=== PATIENT | female | born 1970 | race Caucasian/White ===

== ENCOUNTER 2021-03-29 06:06 | Day surgery (SDC) | payer OTHER ==
[2021-03-29] MEDS ORDERED: Lactated Ringers 1,000 ML IV SCH (06:30)
[2021-03-29] MEDS ORDERED: Versed 2 MG/2 ML Injection ONE (07:29)
[2021-03-29] MEDS ORDERED: DIPRIVAN 200 MG/20 ML IV ONE ×2 (07:29→07:37)
--- NOTE | 2021-03-29 08:04 | OP ---
SURGERY DATE/TIME: 03/29/2021 0728 PREOPERATIVE DIAGNOSIS: Screening colon exam. POSTOPERATIVE DIAGNOSIS: Normal colon. PROCEDURE: Colonoscopy. SURGEON: Dr. Mckinney. ANESTHESIA: MAC. Medications given by anesthesia department. HISTORY: The patient is a 50 year-old white female who presents now for her first screening colonoscopy. The patient was appraised of the risks of the procedure including the risk of perforation, phlebitis, untoward reaction to medication, bleeding and missed lesions. The patient verbalized her understanding and desired to have the procedure performed. DESCRIPTION OF PROCEDURE: The patient was given the medications by the anesthesia department. She had continuous pulse oximetry, ECG monitoring, intermittent blood pressure monitoring and tidal CO2 monitoring during the examination. She was placed in the left lateral decubitus position. A digital rectal examination was performed and revealed normal anal sphincter tone and no masses. The flexible Olympus pediatric colonoscope was used to intubate the rectum. A view of the colon was developed sequentially to the cecum. Upon insertion and withdrawal, including a retroflex view in the rectum, no mucosal lesions were encountered. The scope was removed from the patient who tolerated the procedure well and was sent back to OP recovery in good condition. The prep was noted to be good.
[2021-03-29] MEDS ORDERED: Lactated Ringers 1,000 ML IV ONE (08:08)
[2021-03-29 08:35] VITALS: O2SAT 100
[2021-03-29 08:46] VITALS: PULSE 68
[2021-03-29 09:11] VITALS: BP 89/55
== END 2021-03-29 09:05 | disposition home or self-care (01) ==
LOC: SDC 06:06
PROVIDERS: ATTEND Family Medicine
DX: Z12.11 Encounter for screening for malignant neoplasm of colon (principal); Z79.899 Other long term (current) drug therapy
CPT/HCPCS: J2250; J2704

== ENCOUNTER 2021-05-20 14:35 | Emergency (ER) | payer OTHER ==
[2021-05-20] MEDS ORDERED: Ear Wax Drops OT STA (15:11)
[2021-05-20] MEDS ORDERED: Ear Wax Drops OT ONE (15:14)
--- NOTE | 2021-05-20 16:10 | ERPHSYRPT ---
- History of Present Illness Patient Subjective Stated Complaint: PT HERE FOR EARACHE TO LEFT EAR, SHE WAS PLACED ON ANTIBOITCS FOR URI ON THURSDAY, Triage Nursing Assessment: PT ALERT, WALKED IN, RESP EASY, FACE MASK IN PLACE, HAS SWELLING TO EXTERNAL LEFT EAR Physician History: Patient is a 50-year-old female presents to emergency department with complaints of an earache to her left ear. Patient was started on Augmentin on Thursday, 3 days ago. Patient states her symptoms have not improved. Pain described as an ache that is localized. Pain tends to radiate to the back of her ear. Patient also has a lymph node in this area. No trauma. No fever. No nausea or vomiting. No dizziness. Symptoms are constant. Symptoms are moderate in intensity. No specific worsening improving factors. Patient states that she feels her ear is red and swollen. Patient voices no other complaints or concerns at this time. Timing/Duration: days (3 days ago) Severity: moderate ENT Location: ear (L) Prearrival Treatment: prescription meds Modifying Factors: Improves With: nothing Associated Symptoms: ear pain (L), No fever, No dizziness, No facial pain/swelling, No headache, No hearing loss, No jaw pain, No malaise, No motion sickness, No nasal congestion/drainage, No epistaxis, No poor fluid intake, No ringing of ears, No swollen glands, No sore throat, No tooth pain, No difficulty swallowing, No voice change Allergies/Adverse Reactions: Sulfa (Sulfonamide Antibiotics) Adverse Reaction (Verified 05/20/21 14:49) Hives Home Medications: Ascorbic Acid/Collagen Hydr [Collagen Plus Vit C Capsule] 1 each PO DAILY 03/20/21 [History] Cholecalciferol (Vitamin D3) [Vitamin D] 400 unit PO DAILY 03/20/21 [History] Black Cohosh 40 mg PO DAILY 03/29/21 [History] Amoxicillin/Potassium Clav [Augmentin 875-125 Tablet] 1 ea DAILY 05/20/21 [History] Levothyroxine Sodium 100 Mcg [Synthroid 100 Mcg] 1 ea DAILY 05/20/21 [History] Hx Influenza Vaccination/Date Given: No Hx Pneumococcal Vaccination/Date Given: No Immunizations Up to Date: Yes Travel Risk - International Travel Have you traveled outside of the country in past 3 weeks: No - Coronavirus Screening Are you exhibiting any of the following symptoms?: No - Vaccine Status Have you recieved a Covid-19 vaccination: Yes 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: [employer] - Vaccination Dates Dates if Unknown: FEBRUARY - Review of Systems Constitutional: No Symptoms, No Fever, No Chills Eyes: No Symptoms Ears, Nose, & Throat: No Symptoms Respiratory: No Symptoms, No Cough, No Dyspnea Cardiac: No Symptoms, No Chest Pain, No Edema, No Syncope Abdominal/Gastrointestinal: No Symptoms, No Abdominal Pain, No Nausea, No Vomiting, No Diarrhea Genitourinary Symptoms: No Symptoms, No Dysuria Musculoskeletal: No Symptoms, No Back Pain, No Neck Pain Skin: No Symptoms, No Rash Neurological: No Symptoms, No Dizziness, No Focal Weakness, No Sensory Changes Psychological: No Symptoms Endocrine: No Symptoms Hematologic/Lymphatic: No Symptoms Immunological/Allergic: No Symptoms All Other Systems: Reviewed and Negative - Past Medical History Pertinent Past Medical History: Yes Neurological History: No Pertinent History ENT History: No Pertinent History Cardiac History: No Pertinent History Respiratory History: No Pertinent History Endocrine Medical History: Hypothyroidism Musculoskeletal History: No Pertinent History GI Medical History: No Pertinent History History: Other Psycho-Social History: No Pertinent History Female Reproductive Disorders: No Pertinent History Other Medical History: frequent UTIs - Past Surgical History Past Surgical History: No Neuro Surgical History: No Pertinent History Cardiac: No Pertinent History Respiratory: No Pertinent History Gastrointestinal: No Pertinent History Genitourinary: No Pertinent History Musculoskeletal: No Pertinent History Female Surgical History: No Pertinent History Other Surgical History: oral surgery - Social History Smoking Status: Never smoker Exposure to second hand smoke: No Drug Use: none Patient Lives Alone: No - Female History Hx Last Menstrual Period: POST Hx Now: No - Nursing Vital Signs Nursing Vital Signs: Initial Vital Signs Temperature 98.0 F 05/20/21 14:44 Pulse Rate 69 05/20/21 14:44 Respiratory Rate 18 05/20/21 14:44 Blood Pressure 132/88 05/20/21 14:44 O2 Sat by Pulse Oximetry 98 05/20/21 14:44 Pain Scale Pain Intensity 3 - Physical Exam General Appearance: no apparent distress, alert, other (The lymph node at the base of the skull on the left side. This entire area into the left mastoid is tender.) Eye Exam: bilateral eye: normal inspection, PERRL, EOMI Ear Exam: right ear: auricle normal, left ear: other (Auricle is red and somewhat tender. It is unclear whether it is red because patient keeps pulling on it versus red from infection. Patient currently on Augmentin antibiotic.), bilateral ear: canal normal, TM normal Nasal Exam: normal inspection Throat Exam: pharynx normal, moist mucus membranes, No tonsillar exudate Neck Exam: supple Cardiovascular/Respiratory Exam: normal breath sounds, regular rate/rhythm Abdominal Exam: non-tender, soft Neurologic Exam: alert, oriented x 3, sensation nml, No motor deficits Skin Exam: normal color, warm, dry SpO2 Interpretation: normal SpO2: 98 O2 Delivery: Room Air - Course Nursing assessment & vital signs reviewed: Yes - CT Exams Other CT Interpretation: Tele-radiologist Report (CT mastoids show mastoids are well aerated without evidence of abnormal opacification, no effusion or bone destruction. The internal auditory canals and semicircular canals appear unremarkable.) Ordered Tests: Active Orders 24 hr Category Date Time Status IAC W/O CONTRAST [CT] Stat Exams 05/20/21 15:36 Completed Medication Summary Discontinued Medications Generic Name Dose Route Start Last Admin Trade Name Alida PRN Reason Stop Dose Admin Carbamide Perox/Anhydrous Glycerin 1 ml 05/20/21 15:11 05/20/21 15:18 Ear Wax Drops OT 05/20/21 15:12 1 ml ONCE STA Administration Carbamide Perox/Anhydrous Glycerin Confirm 05/20/21 15:14 Ear Wax Drops Administered 05/20/21 15:15 Dose 15 ml OT .STK-MED ONE - Progress Progress: improved Progress Note: Patient reassessed for she feels well. Patient will continue taking her Augmentin antibiotic. CT scan negative for mastoiditis. We will refer patient to ENT for follow-up. Tentative diagnosis is perichondritis. 05/20/21 16:55 - Departure Departure Disposition: Home Clinical Impression: Maxillary sinusitis, Perichondritis Condition: Stable Critical Care Time: No Referrals: DOCTOR,NO FAMILY [Primary Care Provider] - Additional Instructions: Discharge/Care Plan RAMONA STEEL was seen on 05/20/21 in the Emergency Room. The patient was counseled regarding Diagnosis,Lab results, Imaging studies, need for follow up and when to return to the Emergency Room. Prescriptions given: Discharge Note I have spoken with the patient and/or caregivers. I have explained the patient's condition, diagnosis and treatment plan based on the information available to me at this time. I have answered the patient's and/or caregiver's questions and addressed any concerns. The patient and/or caregivers have as good understanding of the patient's diagnosis, condition and treatment plan as can be expected at this point. The vital signs have been stable. The patient's condition is stable and appropriate for discharge from the emergency department. The patient will pursue further outpatient evaluation with the primary care physician or other designated or consulting physician as outlined in the discharge instructions. The patient and/or caregivers are agreeable to this plan of care and follow-up instructions have been explained in detail. The patient and/or caregivers have received these instruction. The patient/and or caregivers are aware that any significant change in condition or worsening of symptoms should prompt an immediate return to this or the closest emergency department or call 911.
--- NOTE | 2021-05-20 16:46 | XRAY ---
Exam: CT of the internal auditory canals without IV contrast from 05/20/2021. CTDI: 26.05 mGy Comparison: None. Indication: 50-year-old female with left ear pain; left posterior head tenderness since last Thursday. Technique: Non-IV contrast axial images were obtained through the temporal bones including the mastoids. Reconstructed coronal and sagittal images were generated and reviewed. Findings: The mastoid air cells are clear without effusion, erosions, or bone destruction. The internal artery canals and semicircular canals of the inner ears appear symmetric. The middle ear ossicles and middle ear cavities appear symmetric bilaterally. The external auditory canals appear grossly unremarkable, although there may be slightly more soft tissue prominence about the margins of the left ear and proximal external auditory canal as compared to the right ear. Correlate with clinical exam. There is moderate mucosal thickening/soft tissue density within the left frontal sinus. Minimal scattered soft tissue density is seen within the ethmoid sinus complex bilaterally. The sphenoid sinus appears essentially unremarkable. There is moderate circumferential mucosal thickening about the left maxillary sinus. No air-fluid level is seen. Right maxillary sinus appears intact. The orbits appear grossly unremarkable. No other bone abnormality is seen. Impression: 1. The mastoids are well aerated without evidence of abnormal opacification, effusion, or bone destruction. 2. The internal artery canals and semicircular canals appear unremarkable and are symmetric bilaterally. 3. No other significant abnormality is seen within either middle ear cavity. 4. Although the external auditory canals appear patent, there is slightly more peripheral soft tissue prominence about the left ear and proximal left external artery canal as compared to the right side. Correlate with clinical exam. 5. Mild to moderate chronic paranasal sinus disease/sinusitis is seen, as discussed above. No air-fluid levels or dense central sinus opacification is seen.
[2021-05-20 17:20] VITALS: PULSE 70
[2021-05-20 17:47] VITALS: BP 100/75; O2SAT 99
== END 2021-05-20 17:46 | disposition home or self-care (01) ==
LOC: ED 14:35
DX: H61.002 Unspecified perichondritis of left external ear (principal); H92.02 Otalgia, left ear; J32.0 Chronic maxillary sinusitis; Z79.899 Other long term (current) drug therapy
CPT/HCPCS: 70480; 99284; A9270-GY

== ENCOUNTER 2021-10-19 11:05 | Emergency (ER) | payer OTHER ==
[2021-10-19] MEDS ORDERED: BABY ASPIRIN 81 MG CHEW PO ONE (11:15)
[2021-10-19] MEDS ORDERED: GI COCKTAIL 45 ML (Maalox/Lidocaine) PO ONE (11:16)
--- NOTE | 2021-10-19 11:20 | ERPHSYRPT ---
- History of Present Illness Time Seen by Provider: 10/19/21 11:15 Historian: patient Exam Limitations: no limitations Patient Subjective Stated Complaint: Pt c/o of pressure in her medial chest Triage Nursing Assessment: Pt brought to the ER by her daughter, vitals wnl, rates pain as 1/10, no edema, pulses normal, denies N&V, skin n/w/d, doesn't appear to be in any distress Physician History: 51 years old female with history of hypothyroidism presented in ER with chief complaint of central chest pain with a pressure tightness sensation constant for the last 2 to 3 days without any significant aggravating or relieving factors. Patient denies associated palpitations or shortness of breath. No radiation. No fever chills or cough but did have some cough more than a week ago. Vaccinated against COVID-19. No history of CAD, PE, leg swelling/pain etc. Timing/Duration: day(s) (2), constant, gradual onset, improved Activities at Onset: rest Quality: fullness, tightness Location: central Chest Pain Radiation: no radiation Severity of Pain-Max: moderate Severity of Pain-Current: mild Modifying Factors: Improves With: nothing Associated Symptoms: denies symptoms Prior Chest Pain/Cardiac Workup: no prior chest pain, no prior cardiac workup Nitro Today/Relief: no nitro taken today Aspirin Treatment Today: no aspirin today Allergies/Adverse Reactions: Sulfa (Sulfonamide Antibiotics) Adverse Reaction (Verified 10/19/21 11:16) Hives Home Medications: Ascorbic Acid/Collagen Hydr [Collagen Plus Vit C Capsule] 1 each PO DAILY 03/20/21 [History] Cholecalciferol (Vitamin D3) [Vitamin D] 400 unit PO DAILY 03/20/21 [History] Black Cohosh 40 mg PO DAILY 03/29/21 [History] Levothyroxine Sodium 100 Mcg [Synthroid 100 Mcg] 1 ea PO DAILY 05/20/21 [History] Hx Influenza Vaccination/Date Given: No Hx Pneumococcal Vaccination/Date Given: No Travel Risk - International Travel Have you traveled outside of the country in past 3 weeks: No - Coronavirus Screening Are you exhibiting any of the following symptoms?: No Close contact with a COVID-19 positive Pt in past 14-21 Days: No - Vaccine Status Have you recieved a Covid-19 vaccination: Yes 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[employer] - Vaccination Dates Dates if Unknown: FEBRUARY - Review of Systems Constitutional: No Symptoms Eyes: No Symptoms Ears, Nose, & Throat: No Symptoms Respiratory: No Symptoms Cardiac: Chest Pain Abdominal/Gastrointestinal: No Symptoms Genitourinary Symptoms: No Symptoms Musculoskeletal: No Symptoms Skin: No Symptoms Neurological: No Symptoms Psychological: No Symptoms Endocrine: No Symptoms Hematologic/Lymphatic: No Symptoms Immunological/Allergic: No Symptoms - Past Medical History Pertinent Past Medical History: Yes Neurological History: No Pertinent History ENT History: No Pertinent History Cardiac History: No Pertinent History Respiratory History: No Pertinent History Endocrine Medical History: Hypothyroidism Musculoskeletal History: No Pertinent History GI Medical History: No Pertinent History History: Other Psycho-Social History: No Pertinent History Female Reproductive Disorders: No Pertinent History Other Medical History: frequent UTIs - Past Surgical History Past Surgical History: No Neuro Surgical History: No Pertinent History Cardiac: No Pertinent History Respiratory: No Pertinent History Gastrointestinal: No Pertinent History Genitourinary: No Pertinent History Musculoskeletal: No Pertinent History Female Surgical History: No Pertinent History Other Surgical History: oral surgery - Social History Smoking Status: Never smoker Exposure to second hand smoke: No Drug Use: none Patient Lives Alone: No - Female History Hx Now: No - Nursing Vital Signs Nursing Vital Signs: Initial Vital Signs Temperature 96.2 F 10/19/21 11:06 Pulse Rate 59 L 10/19/21 11:06 Respiratory Rate 19 10/19/21 11:06 Blood Pressure 109/57 10/19/21 11:06 O2 Sat by Pulse Oximetry 99 10/19/21 11:06 Pain Scale Pain Intensity 1 - Physical Exam General Appearance: no apparent distress, alert, anxiety Eye Exam: PERRL/EOMI, eyes nml inspection Ears, Nose, Throat Exam: normal ENT inspection, pharynx normal Neck Exam: normal inspection, non-tender, supple, full range of motion Respiratory Exam: normal breath sounds, lungs clear Cardiovascular Exam: regular rate/rhythm, normal heart sounds Gastrointestinal/Abdomen Exam: soft Back Exam: normal inspection, normal range of motion Extremity Exam: normal inspection, normal range of motion Neurologic Exam: alert, oriented x 3, 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, 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 Skin Exam: normal color SpO2 Interpretation: normal SpO2: 99 O2 Delivery: Room Air - Course EKG Interpreted by Me: RATE (59), Sinus Adan, NORMAL AXIS, NORMAL INTERVALS, NORMAL QRS Ordered Tests: Medication Summary Discontinued Medications Generic Name Dose Route Start Last Admin Trade Name Alida PRN Reason Stop Dose Admin Al Hydrox/Mg Hydrox/Simethicone Confirm 10/19/21 11:36 Mag Hydrox/Al Hydrox/Simeth 30 Ml Udcup Administered 10/19/21 11:37 Dose 30 ml .ROUTE .STK-MED ONE Aspirin 324 mg 10/19/21 11:15 10/19/21 11:37 Aspirin 81 Mg Tab.Chew PO 10/19/21 11:16 324 mg STAT ONE Administration Aspirin Confirm 10/19/21 11:35 Aspirin 81 Mg Tab.Chew Administered 10/19/21 11:36 Dose 324 mg .ROUTE .STK-MED ONE Lidocaine HCl Confirm 10/19/21 11:36 Lidocaine Hcl Viscous 1 Ml Administered 10/19/21 11:37 Dose 15 ml .ROUTE .STK-MED ONE Magnesium Hydroxide 45 ml 10/19/21 11:16 10/19/21 11:37 Mag Hydrx/Alum Hyd/Simeth/Lido 45 Ml Bottle PO 10/19/21 11:17 45 ml STAT ONE Administration Lab/Rad Data: Laboratory Result Diagrams 10/19/21 11:15 10/19/21 11:15 Laboratory Results 10/19/21 10/19/21 10/19/21 Range/Units 14:19 11:30 11:15 WBC (4.0-10.5) K/mm3 RBC (4.1-5.4) M/mm3 Hgb (12.0-16.0) gm/dl Hct (35-47) % MCV (78-100) fl MCH (26-32) pg MCHC (32-36) g/dl RDW (11.5-14.0) % Plt Count (150-450) K/mm3 MPV (7.5-11.0) fl Gran % (36.0-66.0) % Eos # (Auto) (0-0.5) Absolute Lymphs (auto) (1.0-4.6) Absolute Monos (auto) (0.0-1.3) Lymphocytes % (24.0-44.0) % Monocytes % (0.0-12.0) % Eosinophils % (0.00-5.0) % Basophils % (0.0-0.4) % Absolute Granulocytes (1.4-6.9) Basophils # (0-0.4) D-Dimer 360 (215-500) ng/mL Sodium (137-145) mmol/L Potassium (3.5-5.1) mmol/L Chloride (98-107) mmol/L Carbon Dioxide (22-30) mmol/L Anion Gap (5-15) MEQ/L BUN (7-17) mg/dL Creatinine (0.52-1.04) mg/dL Estimated GFR ML/MIN Glucose (74-106) mg/dL Calcium (8.4-10.2) mg/dL Total Bilirubin (0.2-1.3) mg/dL AST (14-36) U/L ALT (0-35) U/L Alkaline Phosphatase (38-126) U/L Creatine Kinase (30-135) U/L Troponin I < 0.012 < 0.012 (0.000-0.034) ng/mL NT-Pro-B Natriuret Pep (0-900) pg/mL Serum Total Protein (6.3-8.2) g/dL Albumin (3.5-5.0) g/dL 10/19/21 10/19/21 Range/Units 11:15 11:15 WBC 5.6 (4.0-10.5) K/mm3 RBC 4.35 (4.1-5.4) M/mm3 Hgb 12.9 (12.0-16.0) gm/dl Hct 40.5 (35-47) % MCV 93.1 (78-100) fl MCH 29.7 (26-32) pg MCHC 31.9 L (32-36) g/dl RDW 13.6 (11.5-14.0) % Plt Count 329 (150-450) K/mm3 MPV 9.3 (7.5-11.0) fl Gran % 60.4 (36.0-66.0) % Eos # (Auto) 0.13 (0-0.5) Absolute Lymphs (auto) 1.50 (1.0-4.6) Absolute Monos (auto) 0.54 (0.0-1.3) Lymphocytes % 26.9 (24.0-44.0) % Monocytes % 9.7 (0.0-12.0) % Eosinophils % 2.3 (0.00-5.0) % Basophils % 0.7 (0.0-0.4) % Absolute Granulocytes 3.36 (1.4-6.9) Basophils # 0.04 (0-0.4) D-Dimer (215-500) ng/mL Sodium 141 (137-145) mmol/L Potassium 4.1 (3.5-5.1) mmol/L Chloride 106 (98-107) mmol/L Carbon Dioxide 28 (22-30) mmol/L Anion Gap 11.2 (5-15) MEQ/L BUN 14 (7-17) mg/dL Creatinine 0.80 (0.52-1.04) mg/dL Estimated GFR > 60.0 ML/MIN Glucose 90 (74-106) mg/dL Calcium 9.8 (8.4-10.2) mg/dL Total Bilirubin 0.60 (0.2-1.3) mg/dL AST 34 (14-36) U/L ALT 44 H (0-35) U/L Alkaline Phosphatase 113 (38-126) U/L Creatine Kinase 58 (30-135) U/L Troponin I (0.000-0.034) ng/mL NT-Pro-B Natriuret Pep 94.6 (0-900) pg/mL Serum Total Protein 6.9 (6.3-8.2) g/dL Albumin 4.1 (3.5-5.0) g/dL - Progress Progress: improved Air Movement: good Progress Note: 10/19/21 14:56 51 years old is evaluated for chest pain last 2 days. EKG did not show any acute ischemic changes, negative troponins x2. Low heart score. Does not seem cardiac and have some element of GERD with esophagitis which improved with GI cocktail recommended outpatient follow-up. Discussed signs symptoms of worsening return to ER which she seems understanding. Blood Culture(s) Obtained: No Antibiotics given: No Counseled pt/family regarding: lab results, diagnosis, need for follow-up, rad results - Departure Departure Disposition: Home Clinical Impression: Atypical chest pain GERD with esophagitis Qualifiers: Esophagitis bleeding: without hemorrhage Qualified Code(s): K21.00 - Gastro- esophageal reflux disease with esophagitis, without bleeding Condition: Stable Critical Care Time: No Referrals: DOCTOR,NO FAMILY [NON-STAFF PHY W/O PRIVILEGES] - Follow up/PCP as directed VIANEY DAVALOS MD [ACTIVE STAFF] - Follow up/PCP as directed (In 2 days for reevaluation) MUKUL CALIX [CONSULTING PHYSICIAN] - Follow up/PCP as directed (Call Thursday morning for evaluation) Instructions: Acid Reflux and GERD in Adults (DC), Angina (DC) Additional Instructions: Avoid spicy food. Take Tylenol as needed. Follow-up with primary care and cardiology for reevaluation. Return to ER for worsening chest pain or if having palpitations/shortness of breath etc. Prescriptions: PANTOPRAZOLE 40 mg Tablet [Protonix 40MG Tablet] 40 mg PO QAM #30 tab
[2021-10-19 11:30] LABS: Absolute Neutrophil Ct (ANC) 3.36 (1.4-6.9); BASOPHIL % 0.7 % (0.0-0.4); Basophil (Absolute #) 0.04 (0-0.4); Eosinophil % 2.3 % (0.00-5.0); Eosinophil (Absolute #) 0.13 (0-0.5); Hematocrit 40.5 % (35-47); Hemoglobin 12.9 gm/dl (12.0-16.0); Lymphocytes % 26.9 % (24.0-44.0); Mean Cell Volume 93.1 fl (78-100); Mean Corpuscular Hemoglobin 29.7 pg (26-32); Mean Corpuscular Hgb Concent. 31.9 g/dl (32-36); Mean Platelet Volume 9.3 fl (7.5-11.0); Monocyte (Absolute #) 0.54 (0.0-1.3); Monocytes % 9.7 % (0.0-12.0); Neutrophil % 60.4 % (36.0-66.0); Platelet Count 329 K/mm3 (150-450); Red Blood Count 4.35 M/mm3 (4.1-5.4); Red Cell Distribution Width 13.6 % (11.5-14.0); White Blood Count 5.6 K/mm3 (4.0-10.5)
[2021-10-19] MEDS ORDERED: BABY ASPIRIN 81 MG CHEW ONE (11:35)
[2021-10-19] MEDS ORDERED: MAALOX ES 30 ML UNIT DOSE ONE (11:36)
[2021-10-19] MEDS ORDERED: XYLOCAINE HCl Viscous ONE (11:36)
[2021-10-19 12:08] LABS: ALBUMIN 4.1 g/dL (3.5-5.0); ALKALINE PHOSPHATASE 113 U/L (38-126); ANION GAP 11.2 MEQ/L (5-15); BLOOD UREA NITROGEN 14 mg/dL (7-17); CHLORIDE 106 mmol/L (98-107); CK-Creatinine Phosphokinase 58 U/L (30-135); Calcium 9.8 mg/dL (8.4-10.2); Carbon Dioxide 28 mmol/L (22-30); EST GLOMERULAR FILTRATION RATE > 60.0 ML/MIN; Glucose 90 mg/dL (74-106); NT PRO BNP 94.6 pg/mL (0-900); Potassium 4.1 mmol/L (3.5-5.1); SGOT/AST 34 U/L (14-36); SGPT/ALT 44 U/L (0-35); SODIUM 141 mmol/L (137-145); Total Protein 6.9 g/dL (6.3-8.2)
[2021-10-19 14:09] VITALS: BP 100/65; PULSE 52
[2021-10-19 14:58] VITALS: O2SAT 99
--- NOTE | 2021-10-19 19:41 | XRAY ---
Indication: Chest pain 2-3 days. Comparison: None Portable chest demonstrates normal heart and lungs. Bony thorax intact.
== END 2021-10-19 15:27 | disposition home or self-care (01) ==
LOC: ED 11:05
DX: R07.89 Other chest pain (principal); E03.9 Hypothyroidism, unspecified; K21.00 Gastro-esophageal reflux disease with esophagitis, without bleeding
CPT/HCPCS: 36000; 36415; 71045; 80053; 82550; 83880; 84484; 85025; 85379; 93005; 93041; 99284; A9270-GY

== ENCOUNTER 2022-12-05 13:39 | Emergency (ER) | payer OTHER ==
[2022-12-05 14:02] VITALS: O2SAT 99
[2022-12-05] MEDS ORDERED: Augmentin 875-125 Tablet PO ONE (14:31)
--- NOTE | 2022-12-05 14:34 | ERPHSYRPT ---
- History of Present Illness Time Seen by Provider: 12/05/22 14:20 Source: patient Exam Limitations: no limitations Patient Subjective Stated Complaint: C/O left lower eye pain and swelling. Patient states that she did a type of facial mask on Thursday and thinks maybe she has an infected tear duct or eyelash. Patient denies any changes in vision. Triage Nursing Assessment: Patient ambulated back to ER. She is alert and oriented. No SOB. Left lower eyelid is swollen. No drainage noted. Physician History: Patient is a 52-year-old female presents to emergency department for evaluation of left lower eyelid swelling and erythema. Mild pain. Patient wears contacts however does have corrective eyeglasses if required. No trauma. No fever. Patient symptoms started a few days ago after wearing a mask. Patient unsure if her symptoms are due to an infected eyelash. No headache. No fever. No nausea vomiting. No pain with extraocular motion. Symptoms are mild to moderate in intensity. No specific worsening improving factors. Patient otherwise feels well. She voices no other complaints or concerns at this time. Patient requesting antibiotic therapy Portions of this note were created with voice recognition technology. There may be grammatical, spelling, punctuation or sound alike errors Timing/Duration: day(s) Location: left eye Severity: moderate Apparent Injury: no Associated Symptoms: No sensitivity to light, No redness, No matting, No eyelid swelling, No other (Patient has no symptomology pertaining to her globe. Patient symptoms are localized to the left lower eyelid) Visual Assistive Devices: Glasses, Contacts Chemical Exposure: No Trauma: No Welding Arc/Tanning Bed Exposure: No Allergies/Adverse Reactions: Sulfa (Sulfonamide Antibiotics) Adverse Reaction (Verified 12/05/22 13:48) Hives Home Medications: Ascorbic Acid/Collagen Hydr [Collagen Plus Vit C Capsule] 1 each PO DAILY 03/20/21 [History] Cholecalciferol (Vitamin D3) [Vitamin D] 400 unit PO DAILY 03/20/21 [History] Black Cohosh 40 mg PO DAILY 03/29/21 [History] Levothyroxine Sodium 100 Mcg [Synthroid 100 Mcg] 1 ea PO DAILY 05/20/21 [History] Hx Tetanus, Diphtheria Vaccination/Date Given: Yes Hx Influenza Vaccination/Date Given: Yes Hx Pneumococcal Vaccination/Date Given: Yes Immunizations Up to Date: Yes Travel Risk - International Travel Have you traveled outside of the country in past 3 weeks: No - Coronavirus Screening Are you exhibiting any of the following symptoms?: No Close contact with a COVID-19 positive Pt in past 14-21 Days: No - Vaccine Status Have you recieved a Covid-19 vaccination: Yes 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: [employer] - Vaccination Dates Dates if Unknown: FEBRUARY - Review of Systems Constitutional: No Symptoms, No Fever, No Chills Eyes: No Symptoms Ears, Nose, & Throat: No Symptoms Respiratory: No Symptoms, No Cough, No Dyspnea Cardiac: No Symptoms, No Chest Pain, No Edema, No Syncope Abdominal/Gastrointestinal: No Symptoms, No Abdominal Pain, No Nausea, No Vomiting, No Diarrhea Genitourinary Symptoms: No Symptoms, No Dysuria Musculoskeletal: No Symptoms, No Back Pain, No Neck Pain Skin: No Symptoms, No Rash Neurological: No Symptoms, No Dizziness, No Focal Weakness, No Sensory Changes Psychological: No Symptoms Endocrine: No Symptoms Hematologic/Lymphatic: No Symptoms Immunological/Allergic: No Symptoms All Other Systems: Reviewed and Negative - Past Medical History Pertinent Past Medical History: Yes Neurological History: No Pertinent History ENT History: No Pertinent History Cardiac History: No Pertinent History Respiratory History: No Pertinent History Endocrine Medical History: Hypothyroidism Musculoskeletal History: No Pertinent History GI Medical History: No Pertinent History History: Other Psycho-Social History: No Pertinent History Female Reproductive Disorders: No Pertinent History Other Medical History: frequent UTIs - Past Surgical History Past Surgical History: Yes Neuro Surgical History: No Pertinent History Cardiac: No Pertinent History Respiratory: No Pertinent History Gastrointestinal: No Pertinent History Genitourinary: No Pertinent History Musculoskeletal: No Pertinent History Female Surgical History: No Pertinent History Other Surgical History: oral surgery - Social History Smoking Status: Never smoker Exposure to second hand smoke: No Drug Use: none Patient Lives Alone: No - Nursing Vital Signs Nursing Vital Signs: Initial Vital Signs Pulse Rate 67 12/05/22 13:49 Respiratory Rate 18 12/05/22 13:49 Blood Pressure 100/56 12/05/22 13:49 O2 Sat by Pulse Oximetry 99 12/05/22 13:49 Pain Scale Pain Intensity 3 - Physical Exam General Appearance: no apparent distress Vision Acuity Degree Evaluation Phase: Corrected (Patient states there is no acute change in her vision at either eye. RN did not perform visual acuity screening.) Eye Exam: left eye: eyelid inflammation (Left lower lid inflammation/blepharitis.), foreign body (There appears to be a 1 body the left lower lid. It is unclear what it was however it was removed during irrigation of the involved eye.), bilateral eye: normal inspection, PERRL, EOMI Ears, Nose, Throat Exam: normal ENT inspection, TMs normal, pharynx normal Neck Exam: normal inspection, non-tender, supple, full range of motion Respiratory Exam: normal breath sounds, chest tenderness, lungs clear, No respiratory distress Cardiovascular Exam: regular rate/rhythm, normal heart sounds, normal peripheral pulses Gastrointestinal Exam: soft, normal bowel sounds, No tenderness, No distention, No guarding Extremity Exam: normal inspection, normal range of motion Neurologic: alert, oriented x 3, cooperative, 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 Physical exam reveals a blepharitis. Patient's complaint is acute in nature. Complexity of complaint is mild. No significant comorbidities to attribute to patient's current complaints. No specific test ordered. Diagnosis was based on history and physical. Patient's involved eye was irrigated as there appeared to be a foreign body under the left lower eyelid. After irrigation the foreign body appeared to be a accumulation of mucus. History and physical exam aided in medical decision making. Due to the inflamed nature of the left lower lid patient received a dose of Augmentin in our emergency department. A prescription for the same was forwarded to patient's pharmacy. Patient also received a dose of Tylenol for treatment of minimal left lower leg discomfort. . Plan of care discussed with patient. She will follow-up with her guest relations representative next week. Patient will remove her contacts and wear her glasses until approved otherwise by her guest relations representative. Patient will take her Augmentin antibiotic as prescribed. Patient has the means to follow through with the plan of care. Level of EM service provided was straightforward. Number complexity of problem was mild. No specific data reviewed or analyzed. Risk of complications and/or risk of morbidity/mortality related to patient management is mild. No critical care time to this encounter. Patient's involved eye was irrigated. No complications during or post irrigation. Patient's response to care was positive. Patient feels much better. Time spent during discharge is approximately 10 minutes. Patient will be discharged home. She will follow-up with her guest relations representative. Portions of this note were created with voice recognition technology. There may be grammatical, spelling, punctuation or sound alike errors 12/05/22 14:43 Counseled pt/family regarding: diagnosis, need for follow-up, rad results - Departure Departure Disposition: Home Clinical Impression: Blepharitis Condition: Stable Critical Care Time: No Referrals: KAJAL GONZALEZ MD [Primary Care Provider] - Follow up/PCP as directed Additional Instructions: Discharge/Care Plan RAMONA STEEL was seen on 12/05/22 in the Emergency Room. The patient was counseled regarding Diagnosis,Lab results, Imaging studies, need for follow up and when to return to the Emergency Room. Prescriptions given: Discharge Note I have spoken with the patient and/or caregivers. I have explained the patient's condition, diagnosis and treatment plan based on the information available to me at this time. I have answered the patient's and/or caregiver's questions and addressed any concerns. The patient and/or caregivers have as good understanding of the patient's diagnosis, condition and treatment plan as can be expected at this point. The vital signs have been stable. The patient's condition is stable and appropriate for discharge from the emergency department. The patient will pursue further outpatient evaluation with the primary care physician or other designated or consulting physician as outlined in the discharge instructions. The patient and/or caregivers are agreeable to this plan of care and follow-up instructions have been explained in detail. The patient and/or caregivers have received these instruction. The patient/and or caregivers are aware that any significant change in condition or worsening of symptoms should prompt an immediate return to this or the closest emergency department or call 911. Prescriptions: Amox Tr/Potass Clav. 875 mg [Augmentin 875-125 Tablet] 875 mg PO BID 7 Days #14 tablet
[2022-12-05] MEDS ORDERED: TYLENOL 325 MG PO ONE (14:38)
[2022-12-05] MEDS ORDERED: TYLENOL 325 MG ONE (14:39)
[2022-12-05] MEDS ORDERED: Augmentin 875-125 Tablet ONE (14:39)
[2022-12-05 14:53] VITALS: BP 90/60; PULSE 64
== END 2022-12-05 14:53 | disposition home or self-care (01) ==
LOC: ED 13:39
DX: H01.005 Unspecified blepharitis left lower eyelid (principal); Z79.899 Other long term (current) drug therapy
CPT/HCPCS: 99282; A9270-GY

== ENCOUNTER 2024-03-08 19:26 | Emergency (ER) | payer OTHER ==
[2024-03-08] MEDS ORDERED: XYLOCAINE 1% HCL 20 ML MDV IJ ONE (19:27)
[2024-03-08 19:43] VITALS: BP 121/74; TEMP 97.6
--- NOTE | 2024-03-08 19:43 | ERPHSYRPT ---
- History of Present Illness Time Seen by Provider: 03/08/24 19:42 Source: patient Exam Limitations: no limitations Physician History: Patient is a 53-year-old female presents emergency department for evaluation of urinary symptomology that started today at approximately 5:30 PM.. Patient has had a urinary tract infection in the past and describes a burning sensation near the urethra. No other complaints. No back pain no fever no vaginal discharge. Symptoms are constant. Symptoms are moderate in intensity. Patient declined pain medication. Patient voices no other complaints or concerns at this time. Portions of this note were created with voice recognition technology. There may be grammatical, spelling, punctuation or sound alike errors Timing/Duration: today Severity: moderate Modifying Factors: Improves With: nothing Associated Symptoms: denies symptoms Allergies/Adverse Reactions: Sulfa (Sulfonamide Antibiotics) Adverse Reaction (Verified 03/08/24 19:36) Hives Home Medications: Ascorbic Acid/Collagen Hydr [Collagen Plus Vit C Capsule] 1 each PO DAILY 03/20/21 [History] Cholecalciferol (Vitamin D3) [Vitamin D] 400 unit PO DAILY 03/20/21 [History] Levothyroxine Sodium 100 Mcg [Synthroid 100 Mcg] 1 ea PO DAILY 05/20/21 [History] Tumeric/Ging/Tolar/Oreg/Capryl [Candicidal Capsule] 1 tab PO DAILY 03/08/24 [History] Hx Tetanus, Diphtheria Vaccination/Date Given: Yes Hx Influenza Vaccination/Date Given: Yes Hx Pneumococcal Vaccination/Date Given: Yes - Review of Systems Constitutional: No Symptoms, No Fever, No Chills Eyes: No Symptoms Ears, Nose, & Throat: No Symptoms Respiratory: No Symptoms, No Cough, No Dyspnea Cardiac: No Symptoms, No Chest Pain, No Edema, No Syncope Abdominal/Gastrointestinal: No Symptoms, No Abdominal Pain, No Nausea, No Vomiting, No Diarrhea Genitourinary Symptoms: No Symptoms, No Dysuria Musculoskeletal: No Symptoms, No Back Pain, No Neck Pain Skin: No Symptoms, No Rash Neurological: No Symptoms, No Dizziness, No Focal Weakness, No Sensory Changes Psychological: No Symptoms Endocrine: No Symptoms Hematologic/Lymphatic: No Symptoms Immunological/Allergic: No Symptoms All Other Systems: Reviewed and Negative - Past Medical History Pertinent Past Medical History: Yes Neurological History: No Pertinent History ENT History: No Pertinent History Cardiac History: No Pertinent History Respiratory History: No Pertinent History Endocrine Medical History: Hypothyroidism Musculoskeletal History: No Pertinent History GI Medical History: No Pertinent History History: Other Psycho-Social History: No Pertinent History Female Reproductive Disorders: No Pertinent History Other Medical History: frequent UTIs - Past Surgical History Past Surgical History: Yes Neuro Surgical History: No Pertinent History Cardiac: No Pertinent History Respiratory: No Pertinent History Gastrointestinal: No Pertinent History Genitourinary: No Pertinent History Musculoskeletal: No Pertinent History Female Surgical History: No Pertinent History Other Surgical History: oral surgery - Social History Smoking Status: Never smoker Exposure to second hand smoke: No Drug Use: none Patient Lives Alone: No - Nursing Vital Signs Nursing Vital Signs: Initial Vital Signs Temperature 97.6 F 03/08/24 19:37 Pulse Rate 88 03/08/24 19:37 Respiratory Rate 18 03/08/24 19:37 Blood Pressure 121/74 03/08/24 19:37 O2 Sat by Pulse Oximetry 98 03/08/24 19:37 Pain Scale Pain Intensity 2 - Physical Exam General Appearance: no apparent distress, alert Eye Exam: PERRL/EOMI, eyes nml inspection Ears, Nose, Throat Exam: moist mucous membranes Neck Exam: normal inspection, full range of motion Respiratory Exam: normal breath sounds, airway intact, No respiratory distress Gastrointestinal/Abdomen Exam: soft, other (Mild suprapubic tenderness no CVA tenderness abdominal pain), No tenderness, No mass Back Exam: normal inspection, normal range of motion, No CVA tenderness, No vertebral tenderness Extremity Exam: normal inspection, normal range of motion, pelvis stable Neurologic Exam: alert, oriented x 3, cooperative, normal mood/affect, sensation nml, No motor deficits Skin Exam: normal color, warm, dry, No rash Lymphatic Exam: No adenopathy SpO2 Interpretation: normal SpO2: 96 O2 Delivery: Room Air - Course Nursing assessment & vital signs reviewed: Yes Ordered Tests: Active Orders 24 hr Category Date Time Status CULTURE,URINE Stat Lab 03/08/24 19:37 Received UA W/RFX UR CULTURE Stat Lab 03/08/24 19:37 Completed Medication Summary Discontinued Medications Generic Name Dose Route Start Last Admin Trade Name Freq PRN Reason Stop Dose Admin Ceftriaxone Sodium 1,000 mg 03/08/24 20:17 03/08/24 20:23 Ceftriaxone Sodium 1000 Mg Inj Vial IM 03/08/24 20:18 1,000 mg STAT ONE Administration Ceftriaxone Sodium Confirm 03/08/24 20:17 Ceftriaxone Sodium 1000 Mg Inj Vial Administered 03/08/24 20:18 Dose 1,000 mg .ROUTE .[facility] Lab/Rad Data: Laboratory Results 03/08/24 Range/Units 19:37 Urine Color Yellow (Yellow) Urine Appearance Clear (Clear) Urine pH 5.5 (4.6-8.0) Ur Specific [place] 1.010 (1.005-1.030) Urine Protein Negative (Negative) Urine Glucose (UA) Negative (Negative) mg/dL Urine Ketones Negative (Negative) Urine Blood Small A (Negative) Urine Nitrite Negative (Negative) Urine Bilirubin Negative (Negative) Urine Urobilinogen 0.2 (0.2) mg/dL Ur Leukocyte Esterase Moderate A (Negative) U Hyaline Cast (Auto) NONE SEEN (0-2) /LPF Urine Microscopic RBC 3-5 (0-5) /HPF Urine Microscopic WBC 21-50 A (0-5) /HPF Ur Epithelial Cells None Seen (None Seen) /HPF Urine Bacteria Rare A (None Seen) /HPF Urine Culture Reflexed YES (NO) - Progress Progress: improved Progress Note: 53-year-old female presents emergency department for evaluation of urinary symptomology. Physical exam essentially nonremarkable. Urinalysis reveals a urinary tract infection. Patient received a dose of Rocephin in our ED. A prescription for Keflex forwarded to patient's pharmacy. No indication for further workup at this time. Will discharge home. Patient to follow-up with the primary care doctor within 48 hours for evaluation. Portions of this note were created with voice recognition technology. There may be grammatical, spelling, punctuation or sound alike errors Complexity problem addressed is moderate acute complicated No critical care time Complexity data reviewed and analyzed is moderate. Urinalysis ordered results analyzed and correlated clinically with history and physical exam. Risk of complication and or risk morbidity/mortality patient management is moderate. Prescription for Keflex forwarded to patient's pharmacy. Patient received IM Rocephin in our ED Vital stable. Time spent to discharge patient is approximately 10 minutes. Plan of care established for shared decision making. No social determinants of health present impede follow-up. Portions of this note were created with voice recognition technology. There may be grammatical, spelling, punctuation or sound alike errors Counseled pt/family regarding: diagnosis - Departure Departure Disposition: Home Clinical Impression: UTI (urinary tract infection) Condition: Stable Critical Care Time: No Referrals: KAJAL GONZALEZ MD [Primary Care Provider] - Follow up/PCP as directed Instructions: Urinary Tract Infection, Adult (DC) Additional Instructions: Discharge/Care Plan RAMONA STEEL was seen on 03/08/24 in the Emergency Room. The patient was counseled regarding Diagnosis,Lab results, Imaging studies, need for follow up and when to return to the Emergency Room. Prescriptions given: Discharge Note I have spoken with the patient and/or caregivers. I have explained the patient's condition, diagnosis and treatment plan based on the information available to me at this time. I have answered the patient's and/or caregiver's questions and addressed any concerns. The patient and/or caregivers have as good understanding of the patient's diagnosis, condition and treatment plan as can be expected at this point. The vital signs have been stable. The patient's condition is stable and appropriate for discharge from the emergency department. The patient will pursue further outpatient evaluation with the primary care physician or other designated or consulting physician as outlined in the discharge instructions. The patient and/or caregivers are agreeable to this plan of care and follow-up instructions have been explained in detail. The patient and/or caregivers have received these instruction. The patient/and or caregivers are aware that any significant change in condition or worsening of symptoms should prompt an immediate return to this or the closest emergency department or call 911. Prescriptions: Cephalexin Mh 500 mg [Keflex 500 mg] 500 mg PO TID #21 cap
[2024-03-08 19:56] LABS: Appearance Clear (Clear); Bacteria Rare /HPF (None Seen); Bilirubin Negative (Negative); Blood Small (Negative); Epithelial Cells None Seen /HPF (None Seen); Glucose, Urine Negative (Negative); Hyaline Casts NONE SEEN /LPF (0-2); Ketones Negative (Negative); Leukocyte Esterase Moderate (Negative); Nitrite Negative (Negative); Ph 5.5 (4.6-8.0); Protein,Urine Dip Negative (Negative); Urobilinogen 0.2 mg/dL (0.2); WBC 21-50 /HPF (0-5)
[2024-03-08 19:57] LABS: ADD URINE CULTURE? YES (NO)
[2024-03-08] MEDS ORDERED: Rocephin 1000 MG INJ ONE (20:17)
[2024-03-08] MEDS: Rocephin 1000 MG INJ IM ONE (20:23)
[2024-03-08 20:33] VITALS: PULSE 80; RESP 16
[2024-03-08 20:35] VITALS: O2SAT 96
== END 2024-03-08 20:33 | disposition home or self-care (01) ==
LOC: ED 19:26
DX: N39.0 Urinary tract infection, site not specified (principal); Z79.899 Other long term (current) drug therapy
CPT/HCPCS: 81001; 87077; 87086; 87186; 96372; 99283; J0696